=== PATIENT | male | born 1985 | race Caucasian/White ===

== ENCOUNTER → 2017-01-07 | Outpatient (CLI) | payer OTHER | LOC: BMCIMAGING 13:57 | PROVIDERS: ATTEND Family Medicine | DX: S69.92XA Unspecified injury of left wrist, hand and finger(s), initial encounter (principal) ==

== ENCOUNTER 2017-02-04 10:43 | Day surgery (SDC) | payer OTHER ==
[~2017-02-04 10:43] MED LIST: cefOXitin SODIUM 2 GM in D5W 100 ML IV ONE
[2017-02-04] MEDS ORDERED: LR 1,000 ML IV ONE (11:07)
[2017-02-04] MEDS ORDERED: LIDOCAINE 1% 2 ML INJ ID PRN (11:07)
--- NOTE | 2017-02-04 11:10 | PDHPUP ---
History & Physical Update H&P update statement: This history and physical update is based on an assessment of the patient which was completed after admission or registration (within 24 hours), but prior to the surgery/procedure. H&P update: H&P reviewed & patient examined, no change in patient's condition since H&P completed
[2017-02-04] MEDS ORDERED: BUPIVACAINE 0.5% 30 ML SDV ONE (12:50)
--- NOTE | 2017-02-04 13:34 | PDANEPAE ---
ANE History of Present Illness PILONIDAL CYST ANE Past Medical History - Cardiovascular History Hx Hypertension: No Hx Arrhythmias: No Hx Chest Pain: No Hx Coronary Artery / Peripheral Vascular Disease: No Hx CHF / Valvular Disease: No Hx Palpitations: No - Pulmonary History Hx COPD: No Hx Asthma/Reactive Airway Disease: No Hx Recent Upper Respiratory Infection: No Hx Oxygen in Use at Home: No Hx Sleep Apnea: No Sleep Apnea Screening Result - Last Documented: Negative - Neurologic History Hx Cerebrovascular Accident: No Hx Seizures: No Hx Dementia: No - Endocrine History Hx Diabetes: No - Renal History Hx Renal Disorders: No - Liver History Hx Hepatic Disorders: No - Neurological & Psychiatric Hx Hx Neurological and Psychiatric Disorders: No - Cancer History Hx Cancer: No - Congenital Disorder History Hx Congenital Disorders: No - GI History Hx Gastrointestinal Disorders: No - Other Health History Other Health History: pilonidal cyst, granuloma mass - Chronic Pain History Chronic Pain: No - Surgical History Prior Surgeries: fx arm as a child. exc of pilonidal cyst x2 2016 ANE Review of Systems - Exercise capacity METS (RN): 4 METS ANE Patient History - Allergies Allergies/Adverse Reactions: No Known Allergies Allergy (Unverified 02/03/17 13:23) - Home Medications Home medications: home medication list seen and reviewed Home Medications: NK [No Known Home Meds] 02/03/17 [Last Taken Unknown] - NPO status NPO Since - Liquids (Date): 02/04/17 NPO Since - Liquids (Time): 06:00 NPO Since - Solids (Date): 02/03/17 NPO Since - Solids (Time): 22:30 - Anes Hx Anes Hx: no prior problems - Smoking Hx Smoking Status: Never smoked - Alcohol Use Alcohol Use: Heavy ANE Labs/Vital Signs - Vital Signs Blood Pressure: 146/92 Heart Rate: 73 Respiratory Rate: 15 O2 Sat (%): 98 Height: 190.5 cm Weight: 106.594 kg ANE Physical Exam - Airway Neck exam: FROM Mallampati Score: Class 1 Mouth exam: normal dental/mouth exam - Pulmonary Pulmonary: no respiratory distress - Cardiovascular Cardiovascular: regular rate and rhythym - ASA Status ASA Status: II ANE Anesthesia Plan Anesthesia Plan: MAC
[2017-02-04] MEDS ORDERED: MIDAZOLAM 2 MG/2 ML VIAL IVP ONE (13:35)
[2017-02-04] MEDS ORDERED: PROPOFOL 200 MG/20 ML VIAL ONE ×5 (13:39→14:39)
[2017-02-04] MEDS ORDERED: fentaNYL 100 MCG/2 ML INJ ONE ×2 (13:40→15:05)
[2017-02-04] MEDS ORDERED: LIDOCAINE 1% 300 MG/30 ML SDV ONE (14:06)
[2017-02-04] MEDS ORDERED: ALBUTEROL 3 ML DEYVIAL IH PRN (14:35)
[2017-02-04] MEDS ORDERED: NALOXONE HCL 0.4 MG/ML INJ IVP PRN (14:35)
[2017-02-04] MEDS ORDERED: HYDROmorphONE/DILAUDID 1 MG/ML SYR IVP PRN (14:35)
[2017-02-04] MEDS ORDERED: ONDANSETRON 4 MG/2 ML VIAL IVP PRN (14:35)
[2017-02-04] MEDS ORDERED: ACETAMINOPHEN 500 MG TAB PO PRN (14:35)
[2017-02-04] MEDS ORDERED: OXYCODONE/APAP 5/325 TAB PO PRN (14:35)
--- NOTE | 2017-02-04 14:58 | POSTANESTH ---
Post Anesthetic Evaluation Cardiovascular Status: Normal, Stable Respiratory Status: Normal, Stable Level of Consciousness/Mental Status: Can Participate in Eval Pain Control: Adequate, Prn Tx Ordered Nausea/Vomiting Control: Adequate, Prn Tx Ordered Complications Possibly Related to Anesthesia: None Noted
[2017-02-04] MEDS ORDERED: HYDROmorphONE/DILAUDID 1 MG/ML SYR ONE (15:05)
--- NOTE | 2017-02-04 15:05 | POSTOPPROG ---
Post Op Note Date of Operation: 02/04/17 Surgeon: Lonnie Mcpherson Anesthesiologist: Dr. Mejias Anesthesia: IV Sedation Pre-op Diagnosis: Perianal mass Post-op Diagnosis: Perianal scar Procedure: REUA, scar tissue with mild inflammation Inf/Abcess present in the surg proc area at time of surgery?: No EBL: Minimal
[2017-02-04] MEDS: fentaNYL 100 MCG/2 ML INJ IVP PRN ×2 (15:08→15:23)
[2017-02-04 15:13] VITALS: O2SAT 100
[2017-02-04 15:41] VITALS: TEMP 97.7
[2017-02-04 15:51] VITALS: RESP 14
[2017-02-04 16:31] VITALS: BP 128/74; PULSE 72
--- NOTE | 2017-02-05 08:46 | GOP ---
[f rep st] OPERATIVE REPORT DATE OF OPERATION: 02/04/2017 SURGEON: Patrick Mcpherson MD ANESTHESIA: Monitored anesthetic care. ANESTHESIOLOGIST: Dr. Mejias. PREOPERATIVE DIAGNOSIS: Perianal mass. POSTOPERATIVE DIAGNOSIS: Perianal scar/granulation tissue. PROCEDURE PERFORMED: 1. Rectal exam under anesthesia. 2. Excision of perianal scarring granulation. FINDINGS: The patient has scar tissue with no evidence of active infection. There is mild inflamma tion present. No distinct mass was noted. ESTIMATED BLOOD LOSS: 20 cc. INDICATIONS: A 31-year-old male with a history of pilonidal sinus tract excision x2. The patient h as residual discomfort and swelling in the area. Risks and benefits of the procedure were discussed . The patient's questions were answered and he wished to proceed. DESCRIPTION OF PROCEDURE: The patient was in the supine position initially. After adequate IV alonzo tion, the patient was moved to the modified lithotomy position. He was then prepped and draped in t he standard surgical fashion. 1% lidocaine, 0.5% Marcaine were injected throughout the gluteal clef t and posterior anal area for local anesthesia. A digital rectal exam was performed. No distinct m ass was identified. The patient had small internal/external hemorrhoids. A small opening was ident ified approximately 1 cm posterior to the anus itself. Adjacent to this was fullness. This was all excised using a #15 blade. It appeared to be scar tissue with a granulated tract. The area was ca uterized for hemostasis. No involvement of the sphincter muscle was identified. The area was thoro ughly irrigated and aspirated. It was then inspected and palpated. No other lesions were identifie d. The subcutaneous tissue was then approximated in layers using 3-0 Vicryl in interrupted fashion. The wound was sterilely dressed and the patient was returned to the supine position. He was then taken to PACU in stable condition. COMPLICATIONS: None. DRAINS: None. /[id number]/MODL
== END 2017-02-04 16:20 | disposition home or self-care (01) ==
LOC: FSGY 10:43
PROVIDERS: ATTEND Surgery
PROC: 0DBQ0ZZ Excision of Anus, Open Approach (ICD-10-PCS; principal; 2017-02-04 12:00)
DX: L90.5 Scar conditions and fibrosis of skin (principal); K62.89 Other specified diseases of anus and rectum
CPT/HCPCS: J0694; J1170; J2250; J2704; J3010

== ENCOUNTER 2017-04-05 15:14 | Emergency (ER) | payer OTHER ==
[2017-04-05 15:27] VITALS: BP 172/100; PULSE 81; RESP 16; TEMP 97.7; O2SAT 98
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
== END 2017-04-05 16:28 | disposition home or self-care (01) ==
DX: S39.012A Strain of muscle, fascia and tendon of lower back, initial encounter (principal); V49.40XA Driver injured in collision with unspecified motor vehicles in traffic accident, initial encounter; Y92.410 Unspecified street and highway as the place of occurrence of the external cause; Y99.8 Other external cause status; Y93.89 Activity, other specified